=== PATIENT | male | born 1990 | race Two or more races ===

== ENCOUNTER → 2025-01-08 | Outpatient (CLI) | payer MEDICAID, SELFPAY ==
--- NOTE | 2025-01-08 | XR_ITS ---
Examination: CT abdomen and pelvis without contrast. Coronal 3-D reconstructions. Sagittal 2-D reconstructions. Date and time of exam: 01/08/2025 0741 hours INDICATIONS: Hepatitis C positive without hepatic coma is the diagnosis CTDI: vol (mGy): 6.70 DLP: (mGycm): 405 Technique: Axial images of the abdomen have been obtained, 3 mm slice thickness Intravenous contrast material has not been administered. Low dose protocols were performed. One or more of the following dose reduction techniques were used; automated exposure control, adjustment of the mA and/or KV according to patient size, use of iterative reconstruction technique. Findings: No focal liver or splenic lesions No gallstones No pancreatic or adrenal mass No renal or ureteral calculi, no hydronephrosis Aorta normal size Normal appendix 15 mm fat-containing umbilical hernia No diverticulitis No bowel obstruction Contracted urinary bladder No significant prostatomegaly IMPRESSION: No focal liver lesions Normal gallbladder Normal appendix. 15 mm fat-containing umbilical hernia
== END | disposition home or self-care (01) ==
PROVIDERS: PCP Physician Assistant; Referring Provider Physician Assistant; Visit Provider Physician Assistant
DX: K42.9 Umbilical hernia without obstruction or gangrene (principal)
CPT/HCPCS: 74176